=== PATIENT | male | born 1945 | race Caucasian/White ===

== ENCOUNTER → 2019-06-28 09:27 | Outpatient (BNVA) | payer MEDICARE, SELFPAY | PROVIDERS: Family Provider Emergency Medicine; PCP Emergency Medicine; Visit Provider Family Medicine | DX: I11.0 Hypertensive heart disease with heart failure (principal); I50.30 Unspecified diastolic (congestive) heart failure; J20.8 Acute bronchitis due to other specified organisms | CPT/HCPCS: 80048 ==

== ENCOUNTER 2019-11-14 10:14 | Emergency (ER) | payer MEDICARE, SELFPAY ==
[2019-11-14 10:17] VITALS: BP 150/82; PULSE 72; RESP 20; TEMP 36.4; O2SAT 99; BMI 28.7
[2019-11-14 10:23] VITALS: PULSE 78; RESP 19; O2SAT 97
--- NOTE | 2019-11-14 10:39 | ED_ITS ---
HPI - Skin/Abscess/Foreign Bdy General: Chief complaint: Skin/Abscess/Foreign Body Stated complaint: abscess on tongue Time Seen by Provider: 11/14/19 10:20 History of Present Illness: HPI narrative: Patient noticed a large knot to the right side of his tongue sometime over the last several days. MD complaint: lesion Onset (ago): day(s) Review of Systems General: Reports: 10 or more systems reviewed and unremarkable except in HPI and below PFSH ED PFSH: Medical History Essential (primary) hypertension Hyperlipidemia, unspecified Primary osteoarthritis involving multiple joints Vitamin D deficiency, unspecified Social History Smoking and tobacco status: former smoker Second hand smoke exposure: No Alcohol intake: current Alcohol intake frequency: holidays/special occasions only Desire information about alcohol rehabilitation?: No Counseling given: No Desire information about substance/drug rehabilitation?: No Counseling given: No Current gender identity: Male Physical Exam Narrative: EXAM NARRATIVE: Patient has a mass growing from the right side of his tongue. The mass is tubular shaped. It extends out from the tongue 1 to 1- 1/2 cm and is three quarters of a centimeter in diameter. Course ED course: I contacted RADHA at [facility] in [place] and arranged an outpatient appointment for the patient. Vital Signs: Vital signs: Vital Signs Temperature 97.5 F L 11/14/19 10:17 Pulse Rate 78 11/14/19 10:23 Respiratory Rate 19 H 11/14/19 10:23 Blood Pressure 150/82 11/14/19 10:17 Pulse Oximetry 97 11/14/19 10:23 Discharge Plan Discharge Patient Disposition: Home, Self-Care Clinical Impression: Mass of tongue Condition: Stable Prescriptions: No Action albuterol sulfate 90 mcg/actuation HFA aerosol inhaler 2 puff INHALATION Q4H PRN (Reason: shortness of breath) 30 Days Qty: 6.7 RF: 1 simvastatin 40 mg tablet 40 mg PO DAILY RF: 0 cholecalciferol (vitamin D3) 50,000 unit capsule 50,000 unit PO .WEEKLY RF: 0 amlodipine 5 mg tablet 5 mg PO DAILY 90 Days Qty: 90 RF: 1 lisinopril-hydrochlorothiazide 20-12.5 mg tablet 2 tab PO DAILY 90 Days Qty: 180 RF: 1 meloxicam 15 mg tablet 15 mg PO DAILY 30 Days Qty: 30 RF: 2 Discharge Orders: Discharge Order (Routine); Ordered 11/14/19 Ordered By: Marquez Nava Referrals: Harsha Bernal PA [Primary Care Provider] - Coding Level of Care Code ED Costumer Assistant for Deandra Herrera
[2019-11-14 10:56] VITALS: BP 140/72; PULSE 69; RESP 20; O2SAT 98
== END 2019-11-14 10:56 | disposition home or self-care (01) ==
PROVIDERS: Emergency Provider Family Medicine; Family Provider Emergency Medicine; PCP Emergency Medicine
DX: K14.9 Disease of tongue, unspecified (principal); I10 Essential (primary) hypertension; E78.5 Hyperlipidemia, unspecified; Z87.891 Personal history of nicotine dependence
CPT/HCPCS: 12345; 99281

== ENCOUNTER → 2020-02-28 17:00 | Outpatient (BNVA) | payer MEDICARE, SELFPAY | PROVIDERS: Family Provider Emergency Medicine; PCP Emergency Medicine; Visit Provider Family Medicine | DX: I10 Essential (primary) hypertension (principal); E55.9 Vitamin D deficiency, unspecified; R53.83 Other fatigue; E78.5 Hyperlipidemia, unspecified | CPT/HCPCS: 80053; 80061; 82652 ==

== ENCOUNTER 2020-03-12 13:41 | Emergency (ER) | payer MEDICARE, SELFPAY ==
[2020-03-12 14:43] VITALS: BP 126/70; PULSE 77; RESP 16; TEMP 36.5; O2SAT 95; BMI 28.1
--- NOTE | 2020-03-12 15:30 | ED_ITS ---
HPI - Back Pain/Injury General: Chief Complaint: Back Pain/Injury Stated Complaint: lower back pain Time Seen by Provider: 03/12/20 15:14 History of Present Illness: HPI Narrative: Patient complains about pain radiates down from the low back down all the way to his toe right side. 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 Denies any hip pain. MD elicited complaint: back pain Pertinent past history: prior back pain Onset (ago): day(s) Timing: constant and progressively worsening Severity: moderate Similar Symptoms Previously: Yes Quality: dull Location: right flank and right lower back Radiation: buttocks, right upper leg and right leg below the knee Exacerbating factors: movement and walking Relieving factors: immobilization Context: turning/twisting Associated symptoms: Reports no associated symptoms; Deny abdominal pain, chills, fever(s), nausea or vomiting Review of Systems Const: Denies: fever(s), chills or body aches Eyes: Denies: change in vision or blurry vision ENMT: Denies: throat pain or nasal congestion Card: Denies: chest pain or dyspnea on exertion Resp: Denies: dyspnea, productive cough or non-productive cough GI: Denies: abdominal pain, nausea or vomiting : Denies: difficulty urinating Musc: Reports: back pain (Sciatica pain right leg); Denies: extremity pain Skin/Breast: Denies: rash Neuro: Denies: headache(s) Psych: Denies: anxiety or depression Rafa/Lymph: Denies: easy bruising PFS ED PFSH: Medical History (Updated 03/12/20 @ 15:30 by MIKE Monk) Essential (primary) hypertension Hyperlipidemia, unspecified Primary osteoarthritis involving multiple joints Vitamin D deficiency, unspecified Social History Smoking and tobacco status: former smoker Second hand smoke exposure: No Alcohol intake: current Alcohol intake frequency: holidays/special occasions only Desire information about alcohol rehabilitation?: No Counseling given: No Desire information about substance/drug rehabilitation?: No Counseling given: No Current gender identity: Male Physical Exam Const: COMMON NORMALS: no acute distress, average body habitus and patient oriented x3 HENMT: COMMON NORMALS: normocephalic HEAD & SCALP: normal to inspection and normocephalic FACE & SINUS: normal facial exam Eye: COMMON NORMALS: conjunctivae normal GENERAL EYE: appearance normal, both eyes and all related structures CONJUNCTIVA: Yes conjunctivae normal Neck/C-Spine: COMMON NORMALS: no JVD Chest: COMMONS NORMALS: normal inspection of the chest Resp: COMMON NORMALS: normal respiratory effort Cardio: COMMON NORMALS: no JVD GI: INSPECTION: Yes normal to inspection Extremity: COMMON NORMALS: normal to inspection and full ROM OTHER: Pain that radiates down the right leg with lifting his leg walking. No pain in the hip joint. Patient sits in chair is able to move the leg without any pain in the hip. Good distal pulse Neuro: COMMON NORMALS: patient oriented x3 Course Vital Signs: Vital signs: Vital Signs Temperature 97.7 F 03/12/20 14:43 Pulse Rate 77 03/12/20 14:43 Respiratory Rate 16 03/12/20 14:43 Blood Pressure 126/70 03/12/20 14:43 Pulse Oximetry 95 03/12/20 14:43 Discharge Plan Discharge Patient Disposition: Home Clinical Impression: Sciatica Qualifiers: Laterality: right Qualified Code(s): M54.31 - Sciatica, right side Condition: Stable Prescriptions: New prednisone 20 mg tablet 20 mg PO DAILY Qty: 14 RF: 0 tramadol 50 mg tablet 50 mg PO TID PRN (Reason: pain) Qty: 14 RF: 0 No Action albuterol sulfate 90 mcg/actuation HFA aerosol inhaler 2 puff INHALATION Q4H PRN (Reason: shortness of breath) 30 Days Qty: 6.7 RF: 1 amlodipine 5 mg tablet 5 mg PO DAILY 90 Days Qty: 90 RF: 3 meloxicam 15 mg tablet 15 mg PO DAILY 90 Days Qty: 90 RF: 3 cholecalciferol (vitamin D3) 1,250 mcg (50,000 unit) capsule 50,000 unit PO .WEEKLY 90 Days Qty: 13 RF: 3 simvastatin 40 mg tablet See Rx Instructions .ROUTE .COMPLEX 90 Days Qty: 90 RF: 3 lisinopril-hydrochlorothiazide 20-12.5 mg tablet 2 tab PO DAILY 90 Days Qty: 180 RF: 3 cyclobenzaprine 5 mg tablet 10 mg PO TID MDD 6 tabs PRN (Reason: muscle spasm) Qty: 30 RF: 1 Discharge Orders: Discharge Order (Routine); Ordered 03/12/20 Ordered By: Lc Maxwell Referrals: Harsha Bernal PA [Primary Care Provider] - Discharge Diet: Usual diet Discharge Activity: Increase activity as tolerated Patient Instructions: Sciatica (ED) Activity Restrictions/Additional Instructions: Follow-up with medical provider as directed. Take medications as prescribed. Return to the ER or your medical provider if condition worsens. Please read and understand discharge instructions. If any questions ask please. No lifting over 10 pounds for next 2 to 3 weeks Coding Level of Care Code ED Lap Winding Machine Operator for Deandra Herrera
[2020-03-12 15:46] VITALS: BP 151/69; PULSE 80; RESP 16; O2SAT 97
== END 2020-03-12 15:49 | disposition home or self-care (01) ==
PROVIDERS: Emergency Provider Nurse Practitioner Family; PCP Emergency Medicine
DX: M54.31 Sciatica, right side (principal); I10 Essential (primary) hypertension; E78.5 Hyperlipidemia, unspecified; Z87.891 Personal history of nicotine dependence
CPT/HCPCS: 12345; 99281

== ENCOUNTER 2020-03-27 06:00 | Outpatient (RCR) | payer MEDICARE, SELFPAY | END 2020-04-15 23:59 | disposition home or self-care (01) | LOC: MPT 06:00 | PROVIDERS: PCP Family Medicine; Referring Provider Family Medicine; Visit Provider Family Medicine | DX: G89.29 Other chronic pain (principal); M54.40 Lumbago with sciatica, unspecified side | CPT/HCPCS: 97110; 97140; 97161 ==

== ENCOUNTER → 2020-04-24 10:51 | Outpatient (BNVA) | payer MEDICARE, SELFPAY | PROVIDERS: PCP Family Medicine; Referring Provider Family Medicine; Visit Provider Orthopaedic Surgery | DX: M25.561 Pain in right knee (principal) | CPT/HCPCS: 73560; 73565 ==

== ENCOUNTER 2020-05-07 09:30 | Emergency (ER) | payer MEDICARE, SELFPAY ==
[2020-05-07 09:59] VITALS: BP 134/78; PULSE 83; RESP 18; TEMP 36.7; O2SAT 97; BMI 28.7
--- NOTE | 2020-05-07 10:18 | ED_ITS ---
HPI - Back Pain/Injury General: Chief Complaint: Back Pain/Injury Stated Complaint: Sciatic nerve pain Time Seen by Provider: 05/07/20 10:13 Source: patient Mode of arrival: ambulatory Limitations: no limitations History of Present Illness: HPI Narrative: Mr. Noonan is a very nice 75-year-old male who comes in complaining of right-sided low back pain that radiates all the way down to his leg. States the pain started a month ago and he has had similar pain in the past and had been diagnosed as sciatica. Patient denies any fall or trauma to the area. Patient states he was seen here and placed on medications and also follow-up with his doctor and had new medications prescribed. All of this is helped but the patient states that the pain is never gone away and it to the point he cannot work now. He denies any fever, chills, abdominal pain, loss of bowel or bladder control, saddle anesthesia, leg numbness or weakness or other complaint. Associated symptoms: Deny abdominal pain, chills, difficulty walking, dysuria, fatigue, fever(s), hematuria, nausea, syncope, urinary urgency or vomiting Review of Systems Const: Denies: fever(s), chills, body aches, fatigue, malaise or diaphoresis Eyes: Denies: change in vision, blurry vision, photophobia, eye discomfort, eye discharge, eye redness or yellow eyes ENMT: Denies: throat pain, odynophagia, hoarseness, swelling of lips/tongue, ear or mastoid pain, ear discharge, change in hearing or nasal discharge Card: Denies: chest pain, palpitations, irregular heart rhythm, edema, lightheadedness, syncope, pre-syncope, dyspnea on exertion or orthopnea Resp: Denies: dyspnea, productive cough, non-productive cough, wheezing, hemoptysis or chest congestion GI: Denies: abdominal pain, nausea, vomiting, hematemesis, coffee ground emesis, heartburn, diarrhea, constipation, GI cramping, hematochezia or melena : Denies: flank pain, dysuria, urinary frequency, urinary urgency or hematuria Musc: Reports: back pain and extremity pain; Denies: neck pain, extremity swelling, joint pain, joint swelling, joint redness, joint warmth or joint stiffness Skin/Breast: Denies: rash, pruritus, erythema, skin pain or skin tenderness Neuro: Denies: headache(s), numbness in extremities, weakness in extremities, sensory changes, lack of coordination, difficulty walking, dizziness, vertigo, confusion, Slurred speech present or seizure-like activity Rafa/Lymph: Denies: easy bruising, easy bleeding, petechiae, purpura or enlarged lymph nodes All/Imm: Denies: urticaria, throat swelling, tongue swelling, facial swelling or acute wheezing PFSH ED PFSH: Medical History (Updated 05/07/20 @ 12:09 by Verónica Gage) Essential (primary) hypertension Hyperlipidemia, unspecified Primary osteoarthritis involving multiple joints Vitamin D deficiency, unspecified Social History Smoking and tobacco status: former smoker Second hand smoke exposure: No Alcohol intake: current Alcohol intake frequency: holidays/special occasions only Desire information about alcohol rehabilitation?: No Counseling given: No Desire information about substance/drug rehabilitation?: No Counseling given: No Current gender identity: Male Physical Exam Const: COMMON NORMALS: no acute distress, patient oriented x3, no limitations and alert GENERAL APPEARANCE: cooperative HENMT: COMMON NORMALS: normocephalic, atraumatic, external ears normal, EAC's normal and Normal external nose present HEAD & SCALP: normal to inspection, normocephalic and atraumatic FACE & SINUS: normal facial exam and face symmetric NOSE: Normal external nose present and Normal nares present EXTERNAL EAR: Yes external ears normal EXTERNAL AUDITORY CANAL: EAC's normal MOUTH: Normal oral and palatal mucosa present, lip normal and tongue normal Eye: COMMON NORMALS: Equal, round and reactive pupils present and conjunctivae normal GENERAL EYE: appearance normal, both eyes and all related structures ALIGNMENT: Yes alignment normal PERIORBITAL: periorbital findings normal EYELID: eyelids normal CONJUNCTIVA: Yes conjunctivae normal SCLERA: sclerae normal PUPIL: Yes Equal, round and reactive pupils present Neck/C-Spine: COMMON NORMALS: full ROM, no lymphadenopathy, supple, no meningeal signs and no JVD GENERAL: Yes normal visual inspection and Yes trachea midline Chest: COMMONS NORMALS: normal inspection of the chest and normal palpation of entire chest wall Resp: COMMON NORMALS: normal respiratory effort, No retractions, No use of accessory muscles and clear to auscultation bilaterally EFFORT & INSPECTION: Yes able to speak in complete sentences and Yes symmetric chest movement AUSCULTATION: clear to auscultation bilaterally, no crackles, no rales, no r honchi and no wheezes Cardio: COMMON NORMALS: no JVD, regular rate, regular rhythm, S1 normal heart sound present and S2 normal heart sound present RATE: regular rate RHYTHM: regular rhythm HEART SOUNDS: S1 normal heart sound present, S2 normal heart sound present, no click, no gallops, no murmurs and no rubs GI: COMMON NORMALS: Soft to palpation and No hepatosplenomegaly present PALPATION: Yes Soft to palpation, No Tenderness to palpation present (GI), No Guarding due to palpation present (GI), No Rigid due to palpation, Yes No hepatosplenomegaly present, No Hernia present, No Palpable mass present and No Pulsatile mass present : COMMON NORMALS: Yes no CVA tenderness BLADDER/KIDNEY EXAM: Yes no CVA tenderness Back/Pelvis: COMMON NORMALS: no CVA tenderness, thoracic and lumbar spine normal to inspection, no thoracic nor lumbar tenderness and thoraco-lumbar ROM normal THORACIC SPINE/UPPER BACK: Yes normal to inspection and Yes thoracic ROM normal LUMBAR SPINE/LOWER BACK: Yes ROM limited, No lumbar spinal tenderness, Yes paraspinal muscle tenderness Lumbar paraspinal muscle tenderness: right, Yes paraspinal muscle spasm Lumbar paraspinal muscle spasm: right, Yes straight leg raise positive right and No straight leg raise positive left SACROILIAC JOINTS: Yes SI joints normal Extremity: COMMON NORMALS: normal to inspection, full ROM, capillary refill normal, no joint enlargement, no clubbing, cyanosis or edema and no calf tenderness Neuro: COMMON NORMALS: patient oriented x3, CN's II-XII intact bilaterally, moves all extremities, no focal motor deficits and no sensory deficits noted SENSORIUM/ORIENTATION: Yes alert MENINGEAL SIGNS: Yes no meningeal signs SPEECH: speech normal GAIT: Yes Antalgic gait present MOTOR EXAM: 5/5 motor strength present throughout DEEP TENDON REFLEXES: Right patellar reflex intensity grade: 2+, Left patellar reflex intensity grade: 2+, Right ankle reflex intensity grade: 2+ and Left ankle reflex intensity grade: 2+ PLANTAR REFLEX: downgoing: bilateral Psych: COMMON NORMALS: mental status grossly normal, Normal thought process present, cooperative, normal affect, speech normal and activity/motor behavior normal SPEECH: Yes normal speech THOUGHT PROCESS: Normal thought process present Skin: COMMON NORMALS: no rashes or lesions noted, turgor normal, no jaundice, no petechiae and no mottling GENERAL SKIN EXAM: no rashes or lesions noted and turgor normal Course Vital Signs: Vital signs: Vital Signs Temperature 98.1 F 05/07/20 09:59 Pulse Rate 79 05/07/20 12:16 Respiratory Rate 14 05/07/20 12:16 Blood Pressure 135/80 05/07/20 12:16 Pulse Oximetry 97 05/07/20 12:16 MDM - Back Pain/Injury MDM Narrative: Medical decision making narrative: The case was reviewed with Dr. Collier, he agrees to see the patient in follow-up. He would like the patient to have an outpatient MRI along with follow-up with him. He agrees with treating this with steroids, muscle relaxers which the patient already has an short course of narcotic pain medication. Patient has no sign of cauda equina syndrome at this time, no sign of infection, no sign of AAA or other life- threatening cause for his pain. I have explained to him the significance of his findings today and he agrees to follow-up as directed. Imaging Data^: CT Lumbar Spine: Radiologist's impression: [address] [id number] [address] Scan Report Signed Patient: Nia Noonan #: [id number] : 3Acct#:[id number] Age/Sex: 75 / MADM Date: 05/07/20 Loc: ERRoom/Bed: Attending Dr: Ordering Provider/Ordering MD: Verónica Gage DO Date of Service: 05/07/20 Procedure(s): CT lumbar spine wo con* [id number] Accession Number(s): [id number] Report Number: [id number] PROCEDURE INFORMATION: Exam: CT Lumbar Spine Without Contrast Exam date and time: 05/07/2020 10:58 AM Age: 75 years old Clinical indication: Low back pain TECHNIQUE: Imaging protocol: Computed tomography images of the lumbar spine without contrast. Radiation optimization: All CT scans at this facility use at least one of these dose optimization techniques: automated exposure control; mA and/or kV adjustment per patient size (includes targeted exams where dose is matched to clinical indication); or iterative reconstruction. COMPARISON: No relevant prior studies available. RADIATION DOSE METRICS: Total DLP (mGy-cm): 2296.12 FINDINGS: Vertebrae: Chronic degenerative changes are present with sclerosis and osteophyte formation of the vertebral bodies. There is disc space narrowing especially at the L4-L5 level. There is DJD in the facet joints with narrowing sclerosis and hypertrophy. There is compression fracture of the superior endplate of L1 which is probably old.. L1-L2: There is left posterolateral herniation of the disc. There is hypertrophy of the facet joints. This causes mild spinal stenosis and right neural foraminal narrowing.. L2-L3: There is diffuse bulging of the L2-L3 disc with facet and ligamentous hypertrophy. This causes mild spinal stenosis but no significant neural foraminal narrowing.. L3-L4: There is a tight spinal stenosis at L3-L4 due to prominent diffuse disc protrusion and prominent bilateral facet and ligamentous hypertrophy. There is bilateral neural foraminal narrowing.. L4-L5: There is prominent disc space narrowing and mild diffuse disc protrusion. There is bilateral facet hypertrophy. There is no significant spinal stenosis or neural foraminal narrowing.. L5-S1: There is chronic degenerative disc narrowing with diffuse disc bulging and facet joint hypertrophy. There is no significant spinal stenosis or neural foraminal narrowing.. Kidneys and ureters: There is a 6.5 cm cyst in the right kidney that has benign characteristics. Soft tissues: Unremarkable. CT/CT lumbar spine wo con* [id number] IMPRESSION: There is tight spinal stenosis at the L3-L4 level due to prominent diffuse disc protrusion and facet hypertrophy. COMMENTS: Consistent with the [employer]'s Incidental Findings Committee white paper (J Am Ar[employer]io Radiol 2018): Any incidental renal lesion less than 1 cm or classified as too small to characterize, or any incidental cystic renal lesion characterized as simple-appearing, is likely benign. No follow-up imaging is recommended for these lesions per consensus recommendations based on imaging criteria. Radiation Dose CTDIVOL = (mGy): DLP = 2296.12 (mGy-cm) Dictated By:Marquez Ayers Signed By:Marquez AyersSibianca Date/Time:05/07/20 1155 DD/ 1154 Discharge Plan Discharge Patient Disposition: Home Clinical Impression: Lumbar radiculopathy Condition: Stable Prescriptions: [place] 5-325 mg tablet 1 tab PO Q6H PRN (Reason: pain) 5 Days Qty: 20 RF: 0 prednisone 10 mg tablets,dose pack See Rx Instructions .ROUTE .COMPLEX Qty: 21 RF: 0 No Action albuterol sulfate 90 mcg/actuation HFA aerosol inhaler 2 puff INHALATION Q4H PRN (Reason: shortness of breath) 30 Days Qty: 6.7 RF: 1 amlodipine 5 mg tablet 5 mg PO DAILY 90 Days Qty: 90 RF: 3 meloxicam 15 mg tablet 15 mg PO DAILY 90 Days Qty: 90 RF: 3 cholecalciferol (vitamin D3) 1,250 mcg (50,000 unit) capsule 50,000 unit PO .WEEKLY 90 Days Qty: 13 RF: 3 simvastatin 40 mg tablet See Rx Instructions .ROUTE .COMPLEX 90 Days Qty: 90 RF: 3 lisinopril-hydrochlorothiazide 20-12.5 mg tablet 2 tab PO DAILY 90 Days Qty: 180 RF: 3 cyclobenzaprine 5 mg tablet 10 mg PO TID MDD 6 tabs PRN (Reason: muscle spasm) Qty: 30 RF: 1 pregabalin 25 mg capsule 25 mg PO BID PRN (Reason: back/leg pain) Qty: 10 RF: 0 Discharge Orders: Discharge Order (Routine); Ordered 05/07/20 Ordered By: Verónica Gage Referrals: Zak Collier DO [Physician] - 1-3 days Bouchra Germain MD [Primary Care Provider] - Discharge Diet: Advance as tolerated Discharge Activity: Limit activity as instructed Patient Instructions: Sciatica (ED), Lumbar Spinal Stenosis (ED), Lumbar Radiculopathy (ED) Activity Restrictions/Additional Instructions: Please return to the ER immediately for any of the signs or symptoms listed on your discharge instruction sheets, worsening/changing of your symptoms, you are not getting better as quickly as expected, or for ANY other cause or concerns. Return to the ER for increased pain, foot or leg numbness/weakness, loss of bladder bladder control, or for any other cause for concern. Coding Level of Care Code ED Director Information for Chg Fwd Exam Comprehensive
[2020-05-07] MEDS: predniSONE 20 mg Tablet 60 MG PO (10:25)
[2020-05-07] MEDS: HYDROcodone-acetaminophen 5-325 mg Tablet 1 TAB PO (10:25)
[2020-05-07 12:16] VITALS: BP 135/80; PULSE 79; RESP 14; O2SAT 97
--- NOTE | 2020-05-10 13:48 | DCPLANNER ---
manager of program had message to schedule an out patient MRI for patient, then a follow up with Dr. Collier at ortho for patient. manager of program faxed order to centralized scheduling, will call for appointment information. After MRI is scheduled, case repairer will call the ortho clinic for a referral to see Dr. Collier after the MRI.
--- NOTE | 2020-05-30 10:49 | DCPLANNER ---
Patient has an outpatient MRI scheduled for Tuesday, June 02, 2020 at 1:45. Centralized scheduling will contact patient with appointment information. software quality manager will call the ortho clinic, patient needs a follow up appointment scheduled with Dr. Collier after the MRI.
--- NOTE | 2020-05-31 15:24 | DCPLANNER ---
Patient has a follow up appointment scheduled for Saturday, June 06, 2020 at 2:[address] Collier. Clinic will call patient with appointment information.
--- NOTE | 2020-07-28 13:53 | DCPLANNER ---
Patient had a follow an outpatient MRI scheduled - patient did not attend appointment. Patient had a follow up appointment for patient with ortho - patient did not attend appointment.
== END 2020-05-07 12:16 | disposition home or self-care (01) ==
PROVIDERS: Emergency Provider Emergency Medicine; PCP Family Medicine
DX: M54.16 Radiculopathy, lumbar region (principal); I10 Essential (primary) hypertension; E78.5 Hyperlipidemia, unspecified; Z87.891 Personal history of nicotine dependence
CPT/HCPCS: 12345; 72131; 99282; 99283; J7512

== ENCOUNTER → 2020-05-26 08:22 | Outpatient (BNVA) | payer MEDICARE, SELFPAY | PROVIDERS: PCP Family Medicine; Referring Provider Family Medicine; Visit Provider Anesthesiology Pain Medicine | DX: G89.29 Other chronic pain (principal); M54.9 Dorsalgia, unspecified; M54.16 Radiculopathy, lumbar region; M47.816 Spondylosis without myelopathy or radiculopathy, lumbar region; M48.062 Spinal stenosis, lumbar region with neurogenic claudication; M51.36 Other intervertebral disc degeneration, lumbar region; Z79.899 Other long term (current) drug therapy | CPT/HCPCS: 99204 ==

== ENCOUNTER → 2020-05-29 13:25 | Outpatient (BNVA) | payer MEDICARE, SELFPAY | PROVIDERS: PCP Family Medicine; Visit Provider Anesthesiology Pain Medicine | DX: M54.16 Radiculopathy, lumbar region (principal); M48.062 Spinal stenosis, lumbar region with neurogenic claudication | CPT/HCPCS: 64483; 64484; J1100; J3490 ==

== ENCOUNTER 2020-05-31 06:36 | Day surgery (SDC) | payer MEDICARE, SELFPAY ==
[2020-05-26 10:43] VITALS: BMI 30.1
--- NOTE | 2020-05-26 10:52 | ECG_ITS ---
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 Measurements Intervals [place] Rate: 88 P: 37 NH: 165 QRS: 27 QRSD: 75 T: 62 QT: 315 QTc: 383 Interpretive Statements SINUS RHYTHM NONSPECIFIC T-WAVE ABNORMALITY Compared to ECG 06/04/2015 12:18:01 T-wave abnormality now present Electronically Signed On 05-26-2020 20:51:02 SALES OPERATIONS ASSOCIATE by Trena Wilkerson M.D. [email or web address]
--- NOTE | 2020-05-26 11:10 | ANES.PREANE2 ---
Pre-Anesthetic Assessment Pre-Anesthetic Assessment: Height/Weight: Height 1.78 m Weight 95.254 kg Preop Diagnosis: ankle mass Proposed Procedure: Operation Date: 05/31/20 09:45 Proposed Procedures p Excision of subcutaneous mass of right ankle 86520 R22.41(Right) - Rosales Carrillo MD Familial anesthetic complications: None Social: Social History: No alcohol and No tobacco Comment: former smoker (30 years ago) Exam: Pre-Anes Outpt Exam: alert, oriented x 3, clear to auscultation bilaterally and regular rate & rhythm Airway: MP: 3 Dentition: False and Other (no teeth) Pulmonary: Comments: does not use albuterol - this was more than a year ago and it was perscribed for cough CV/HEM: CV/HEM: HTN GI: GI: GERD Neuropsych: Neuropsych: Neuropathy (L leg) Anesthetic Plan: ASA status: 2 Anesthesia: MAC Risk of > 500 ml blood loss (7ml/kg in children): No PFSH Anesthesia PFSH: Medical History (Updated 05/26/20 @ 10:36 by Kristy Gooden RN) Essential (primary) hypertension Hyperlipidemia, unspecified Primary osteoarthritis involving multiple joints Vitamin D deficiency, unspecified Surgical History H/O colonoscopy 5-6 yrs ago History of ankle surgery with hardware Family History Father CAD (coronary artery disease) Other Diabetes Denies family history of Anesthesia complication Bleeding disorder Cancer Social History (Updated 05/26/20 @ 10:37 by Kristy Gooden RN) Smoking and tobacco status: former smoker Second hand smoke exposure: No Alcohol intake: current Alcohol intake frequency: holidays/special occasions only Desire information about alcohol rehabilitation?: No Counseling given: No Substance/Drug Use: never Desire information about substance/drug rehabilitation?: No Counseling given: No Lives independently: Yes Household members: children Marital status: / Current occupational status: employed 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
[2020-05-29 07:06] LABS: Coronavirus Lab Test PTC Negative
[2020-05-31 06:51] VITALS: BP 158/98; PULSE 96; RESP 18; TEMP 36.8; O2SAT 98
[2020-05-31] MEDS: sodium chloride 0.9% 1,000 ML 30 ML IV (07:12)
--- NOTE | 2020-05-31 07:12 | W.PM.OPSUD ---
Surgery/Procedure H&P Update DATE OF PROCEDURE: May 31, 2020 DATE H&P PERFORMED: 05/19/20 H&P UPDATE INFORMATION: I have reviewed H&P completed within last 30 days, I have examined patient prior to procedure and No changes to prior documentation PREOP DIAGNOSIS: right ankle mass PLANNED PROCEDURE: Operation Date: 05/31/20 08:20 Proposed Procedures p Excision of subcutaneous mass of right ankle [id number] R22.41(Right) - Rosales Carrillo MD
[2020-05-31] MEDS: lidocaine 1% INJ 20 mL 10 ML INJECTION (08:54)
[2020-05-31 09:10] VITALS: BP 142/81; PULSE 93; RESP 18; TEMP 37.2; O2SAT 95
[2020-05-31 09:30] VITALS: BP 142/80; PULSE 85; RESP 18; O2SAT 97
--- NOTE | 2020-05-31 10:25 | ANE.PACU2 ---
Inpatient post-anesthesia follow up: Airway intact: Yes Vital signs: Temperature 98.9 F Pulse Rate 85 Respiratory Rate 18 Blood Pressure 142/80 Pulse Oximetry 97 Oxygen Delivery Me thod Room Air Oxygen Flow Rate Fraction of Inspir ed Oxygen Hydration adequate: Yes Nausea and vomiting: No Pain level: 2 Mental status: Baseline
--- NOTE | 2020-05-31 10:28 | P.OP_ITS ---
Operative Report Date of procedure: May 31, 2020 Pre-op Diagnosis: right ankle mass Post-op Diagnosis: 3 x 3 cm right ankle mass Procedure Done: Excision of subcutaneous mass right ankle Specimens removed/disposition: Subcutaneous mass right ankle Surgeon: Rosales Carrillo Anesthesia: MAC and General Condition: stable Disposition: same day Procedure: The patient was taken to the operating room and placed under MAC afte r IV antibiotic had been administered. The right ankle was prepped and draped in sterile manner. 1% lidocaine with 0.5% Marcaine was infiltrated around the palpable mass. Using 15 blade a 3 cm longitudinal incision was made over the palpable mass and the subcutaneous tissue was divided using electrocautery and the subcutaneous mass was dissected free from the surrounding subcutaneous tissue and sent to pathology, wound was irrigated with saline, subcutaneous tissues approximated using running 3-0 Vicryl suture after flaps had been raised bilaterally to reduce tension. The wound was closed with running subcuticular 4-0 Monocryl suture and covered with surgical glue and pressure dressings. Patient tolerated procedure well.
== END 2020-05-31 10:28 | disposition home or self-care (01) ==
PROVIDERS: PCP Family Medicine; Visit Provider Surgery
PROC: (CPT 11403; principal; 2020-05-31 08:20)
DX: D18.01 Hemangioma of skin and subcutaneous tissue (principal); Z87.891 Personal history of nicotine dependence; I10 Essential (primary) hypertension; K21.9 Gastro-esophageal reflux disease without esophagitis; E55.9 Vitamin D deficiency, unspecified; M19.90 Unspecified osteoarthritis, unspecified site
CPT/HCPCS: 11403; 12032; 12345; 87635; 88309; 93005; J0690; J2704; J3010; J3490; J7030

== ENCOUNTER → 2020-06-12 12:41 | Outpatient (BNVA) | payer MEDICARE, SELFPAY | PROVIDERS: PCP Family Medicine; Visit Provider Anesthesiology Pain Medicine | DX: M54.16 Radiculopathy, lumbar region (principal); M48.062 Spinal stenosis, lumbar region with neurogenic claudication | CPT/HCPCS: 64483; 64484; J1100; J3490 ==

== ENCOUNTER → 2020-09-12 08:39 | Outpatient (BNVA) | payer MEDICARE, SELFPAY | PROVIDERS: PCP Family Medicine; Visit Provider Family Medicine | DX: I10 Essential (primary) hypertension (principal); K59.00 Constipation, unspecified; R06.02 Shortness of breath; R14.0 Abdominal distension (gaseous); Z92.3 Personal history of irradiation; Z85.46 Personal history of malignant neoplasm of prostate; R73.9 Hyperglycemia, unspecified | CPT/HCPCS: 80053; 83036; 83880; 85025 ==

== ENCOUNTER → 2020-09-26 08:37 | Outpatient (BNVA) | payer MEDICARE, SELFPAY | PROVIDERS: PCP Family Medicine; Visit Provider Family Medicine | DX: R06.02 Shortness of breath (principal); Z87.891 Personal history of nicotine dependence | CPT/HCPCS: 71046 ==

== ENCOUNTER → 2020-11-28 11:44 | Outpatient (BNVA) | payer MEDICARE, SELFPAY | PROVIDERS: PCP Family Medicine; Visit Provider Internal Medicine Critical Care Medicine | DX: R06.02 Shortness of breath (principal); Z20.822 Contact with and (suspected) exposure to COVID-19 | CPT/HCPCS: 87635 ==

== ENCOUNTER → 2021-03-26 13:37 | Outpatient (BNVA) | payer MEDICARE, SELFPAY | PROVIDERS: PCP Family Medicine; Visit Provider Family Medicine | DX: I10 Essential (primary) hypertension (principal); E78.2 Mixed hyperlipidemia; M15.0 Primary generalized (osteo)arthritis; M62.838 Other muscle spasm; M54.40 Lumbago with sciatica, unspecified side; M48.062 Spinal stenosis, lumbar region with neurogenic claudication; M54.16 Radiculopathy, lumbar region; M51.36 Other intervertebral disc degeneration, lumbar region; J41.0 Simple chronic bronchitis | CPT/HCPCS: 80053; 80061 ==

== ENCOUNTER → 2022-02-20 10:20 | Outpatient (BNVA) | payer MEDICARE, SELFPAY | PROVIDERS: PCP Family Medicine; Visit Provider Family Medicine | DX: I10 Essential (primary) hypertension (principal); M15.0 Primary generalized (osteo)arthritis; E78.2 Mixed hyperlipidemia; J41.0 Simple chronic bronchitis; R53.83 Other fatigue; E55.9 Vitamin D deficiency, unspecified; M62.838 Other muscle spasm; M48.062 Spinal stenosis, lumbar region with neurogenic claudication | CPT/HCPCS: 80053; 80061; 82652; 85025 ==

== ENCOUNTER → 2022-03-05 11:03 | Outpatient (BNVA) | payer MEDICARE, SELFPAY | PROVIDERS: PCP Family Medicine; Visit Provider Family Medicine | DX: M62.838 Other muscle spasm (principal); M54.2 Cervicalgia | CPT/HCPCS: 72040 ==

== ENCOUNTER → 2023-03-04 15:14 | Outpatient (BNVA) | payer MEDICARE, SELFPAY | PROVIDERS: PCP Family Medicine; Visit Provider Family Medicine | DX: I10 Essential (primary) hypertension (principal); M15.0 Primary generalized (osteo)arthritis; E78.2 Mixed hyperlipidemia; J44.9 Chronic obstructive pulmonary disease, unspecified | CPT/HCPCS: 80053; 80061 ==

== ENCOUNTER → 2023-05-01 13:46 | Outpatient (BNVA) | payer MEDICARE, SELFPAY | PROVIDERS: PCP Family Medicine; Visit Provider Family Medicine | DX: R74.8 Abnormal levels of other serum enzymes (principal) | CPT/HCPCS: 80048; 85025 ==

== ENCOUNTER → 2023-10-07 10:50 | Outpatient (BNVA) | payer MEDICARE, SELFPAY | PROVIDERS: PCP Family Medicine; Visit Provider Family Medicine | DX: I10 Essential (primary) hypertension (principal); R74.8 Abnormal levels of other serum enzymes; M15.0 Primary generalized (osteo)arthritis | CPT/HCPCS: 80048; 85651; 86038; 86140 ==

== ENCOUNTER → 2023-10-10 08:53 | Outpatient (BNVA) | payer MEDICARE, SELFPAY | PROVIDERS: PCP Family Medicine; Referring Provider Family Medicine; Visit Provider Family Medicine | DX: M17.11 Unilateral primary osteoarthritis, right knee (principal); M17.12 Unilateral primary osteoarthritis, left knee | CPT/HCPCS: 73562 ==

== ENCOUNTER → 2024-04-07 08:35 | Outpatient (BNVA) | payer MEDICARE, SELFPAY | PROVIDERS: PCP Family Medicine; Visit Provider Family Medicine | DX: I10 Essential (primary) hypertension (principal) | CPT/HCPCS: 80048; 80061 ==

== ENCOUNTER → 2024-10-06 08:29 | Outpatient (BNVA) | payer MEDICARE, SELFPAY | PROVIDERS: PCP Family Medicine; Visit Provider Family Medicine | DX: I10 Essential (primary) hypertension (principal); E78.2 Mixed hyperlipidemia; E55.9 Vitamin D deficiency, unspecified | CPT/HCPCS: 80048; 82652 ==

== ENCOUNTER → 2025-02-23 14:35 | Outpatient (BNVA) | payer MEDICARE, SELFPAY | PROVIDERS: PCP Family Medicine; Visit Provider Family Medicine | DX: J41.0 Simple chronic bronchitis (principal); J20.9 Acute bronchitis, unspecified; I70.90 Unspecified atherosclerosis | CPT/HCPCS: 71046 ==

== ENCOUNTER → 2025-05-09 08:33 | Outpatient (BNVA) | payer MEDICARE, SELFPAY | PROVIDERS: PCP Family Medicine; Visit Provider Family Medicine | DX: E78.2 Mixed hyperlipidemia (principal); I10 Essential (primary) hypertension | CPT/HCPCS: 80048; 80061 ==